=== PATIENT | male | born 1945 | race Caucasian/White ===

== ENCOUNTER → 2022-05-18 06:35 | Outpatient (CLI) | payer MEDICARE, SELFPAY ==
[2022-05-17 20:06] LABS: Basophils % 0.3 % (0.1-2.0); Eosinophils # 0.2 K/mm3 (0.0-0.4); Eosinophils % 3.3 % (0.1-12.0); Hematocrit 40.5 % (42.0-52.0); Lymphocytes % 14.2 % (10-50); Mean Corpuscular HGB Conc 32.1 g/dL (31.8-35.4); Mean Corpuscular Hemoglobin 28.5 pg (27.0-31.2); Mean Corpuscular Volume 88.8 fl (80-94); Mean Platelet Volume 12.3 fl (7.4-10.4); Monocytes # 0.4 K/mm3 (0.1-1.0); Monocytes % 5.2 % (1.7-9.3); Neutrophils # 5.6 K/mm3 (1.8-7.8); Neutrophils % 76.9 % (37.0-80.0); Platelet Count 240 K/mm3 (142-424); Red Blood Count 4.56 M/mm3 (4.60-6.20); Red Cell Distribution Width 14.6 % (11.5-17.5); White Blood Count 7.3 K/mm3 (4.8-10.8)
[2022-05-17 21:04] LABS: Alanine Aminotransferase 20 U/L (12-78); Albumin/Globulin Ratio 1.1 (1.1-1.8); Alkaline Phosphatase 95 U/L (38-126); Anion Gap 14.8 mEq/L (5-15); Aspartate Amino Transferase 29 U/L (17-59); Bilirubin,Total 0.6 mg/dl (0.2-1.3); Blood Urea Nitrogen 18 mg/dl (9-20); Calcium 9.7 mg/dl (8.4-10.2); Carbon Dioxide 20 mmol/L (22.0-30.0); Chloride 104 mmol/L (98-107); Estimated Glomerular Filt Rate 49 ml/min (>60); GFR (African American) 60 ML/MIN (>60); Globulin 3.5 g/dL (1.3-3.2); Glucose 108 mg/dl (74-100); Potassium 4.8 mmoL/L (3.5-5.1); Sodium 134 mmol/L (136-145); Total Protein,Serum 7.5 g/dl (6.3-8.2)
[2022-05-17 21:18] LABS: T4 (Thyroxine) 7.3 ug/dl (5.53-11.0)
[2022-05-17 21:32] LABS: Thyroid Stimulating Hormone 6.82 uIU/mL (0.465-4.68)
== END ==
PROVIDERS: PCP Family Medicine; Visit Provider Family Medicine
DX: I48.91 Unspecified atrial fibrillation (principal); R19.7 Diarrhea, unspecified
CPT/HCPCS: 80053; 84436; 84443; 85025

== ENCOUNTER 2023-03-16 19:33 | Emergency (ER) | payer MEDICARE, BC, OTHER, SELFPAY ==
[2023-03-16 19:26] VITALS: BMI 29.5
--- NOTE | 2023-03-16 19:26 | CT_ITS ---
PROCEDURE INFORMATION: Exam: CT Head Without Contrast Exam date and time: 03/16/2023 7:34 PM Age: 77 years old Clinical indication: Stroke-like symptoms; Speech disturbance; Additional info: Slurred speech, unilateral weakness TECHNIQUE: Imaging protocol: Computed tomography of the head without contrast. Radiation optimization: All CT scans at this facility use at least one of these dose optimization techniques: automated exposure control; mA and/or kV adjustment per patient size (includes targeted exams where dose is matched to clinical indication); or iterative reconstruction. Other technique: STROKE PROTOCOL was implemented. REPORTING DATA: Count of CT and Cardiac NM exams in prior 12 months: This patient has received 0 known CTs and 0 known cardiac nuclear medicine studies in the 12 months prior to the current study. COMPARISON: No relevant prior studies available. FINDINGS: Brain: Left frontal lobe encephalomalacia. Chronic right basal ganglia lacunar infarctions. Mild chronic brain volume loss and moderate to advanced chronic small vessel ischemic changes. Cerebral ventricles: No ventriculomegaly. Paranasal sinuses: Mild mucosal thickening in the paranasal sinuses. Postsurgical changes of the paranasal sinuses. Secretions filling most of the paranasal sinuses. Mastoid air cells: Visualized mastoid air cells are well aerated. Orbital cavities: Status post right cataract surgery. Bones/joints: Unremarkable. No acute fracture. Soft tissues: Unremarkable. IMPRESSION: 1. No acute intracranial findings. If there is high clinical concern for acute infarction, consider MRI for further evaluation. 2. Chronic paranasal sinusitis with a pattern suggestive of polyposis. ASSESSMENT: ASPECTS score ([place] Stroke Program Early CT Score) is 10.
[2023-03-16 19:33] VITALS: BP 182/113; PULSE 85; RESP 19; TEMP 36.6; O2SAT 99; BMI 28.0
--- NOTE | 2023-03-16 19:34 | PC.NURSE ---
Patient straight to CT for Stroke protocol
--- NOTE | 2023-03-16 19:35 | PC.NURSE ---
stroke alert called [id number]
[2023-03-16 19:37] VITALS: BMI 28.0
--- NOTE | 2023-03-16 19:38 | PC.NURSE ---
Patient back from CT to room. Attending at bedside
[2023-03-16 19:39] VITALS: BP 182/113; PULSE 77; RESP 19; TEMP 36.8; O2SAT 98; BMI 30.2
--- NOTE | 2023-03-16 19:44 | CT_ITS ---
PROCEDURE INFORMATION: Exam: CTA Neck With Contrast Exam date and time: 03/16/2023 7:49 PM Age: 77 years old Clinical indication: Stroke-like symptoms; Speech disturbance; Additional info: Slurred speech TECHNIQUE: Imaging protocol: Computed tomographic angiography of the neck with contrast. 3D rendering (Not supervised by radiologist): MIP and/or 3D reconstructed images were created by the technologist. Radiation optimization: All CT scans at this facility use at least one of these dose optimization techniques: automated exposure control; mA and/or kV adjustment per patient size (includes targeted exams where dose is matched to clinical indication); or iterative reconstruction. Contrast material: ISOVUE 370; Contrast volume: 100 ml; Contrast route: INTRAVENOUS (IV); REPORTING DATA: Count of CT and Cardiac NM exams in prior 12 months: This patient has received 0 known CTs and 0 known cardiac nuclear medicine studies in the 12 months prior to the current study. COMPARISON: CT HEAD/BRAIN WO CON 16/03/2023 19:34 FINDINGS: Tubes, catheters and devices: Pacemaker lead is noted. Right common carotid artery: Moderate atherosclerotic changes of the right carotid bifurcation with approximately 10% stenosis of the internal carotid artery per NASCET criteria. Right internal carotid artery: No stenosis of the extracranial segment. No dissection or occlusion. Right external carotid artery: No occlusion or stenosis of the origin. Left common carotid artery: There is a bovine aortic arch, with a common origin of the left common carotid and brachiocephalic arteries. Moderate to severe atherosclerotic disease of the left common carotid artery with a long segment of mild stenosis. In the distal aspect, there is approximately 60% stenosis of the common carotid artery. Severe atherosclerotic changes of the left carotid bifurcation with 60% stenosis of the internal carotid artery per NASCET criteria. Left internal carotid artery: No stenosis of the extracranial segment. No dissection or occlusion. Left external carotid artery: No occlusion or stenosis of the origin. Right vertebral artery: No stenosis. No dissection or occlusion. Left vertebral artery: The left vertebral artery is dominant. Soft tissues: Normal. No significant soft tissue swelling. Bones/joints: Multilevel degenerative changes of the cervical spine producing multiple levels of mild spinal canal stenosis. IMPRESSION: 1. There are approximately 60% stenoses in the distal left common carotid artery and proximal internal carotid artery. 2. THIS REPORT CONTAINS FINDINGS THAT MAY BE CRITICAL TO PATIENT CARE. The findings were verbally communicated via telephone conference with Dr. García at 8:36 PM EDT on 03/16/2023. The findings were acknowledged and understood. REFERENCES: NASCET CRITERIA. The degree of stenosis in the cervical segment of the internal carotid artery is based on NASCET criteria. Normal is no stenosis. Mild is less than 50% stenosis. Moderate is 50-69% stenosis. Severe is 70% to 99% stenosis. Total occlusion is no detectable patent lumen.
--- NOTE | 2023-03-16 19:44 | CT_ITS ---
PROCEDURE INFORMATION: Exam: CTA Head With Contrast, Arteriography Exam date and time: 03/16/2023 7:49 PM Age: 77 years old Clinical indication: Stroke-like symptoms; Speech disturbance; Additional info: Slurred speech TECHNIQUE: Imaging protocol: Computed tomographic angiography of the head with contrast. Exam focused on the arteries. 3D rendering (Not supervised by radiologist): MIP and/or 3D reconstructed images were created by the technologist. Radiation optimization: All CT scans at this facility use at least one of these dose optimization techniques: automated exposure control; mA and/or kV adjustment per patient size (includes targeted exams where dose is matched to clinical indication); or iterative reconstruction. Contrast material: ISOVUE 370; Contrast volume: 100 ml; Contrast route: INTRAVENOUS (IV); REPORTING DATA: Count of CT and Cardiac NM exams in prior 12 months: This patient has received 0 known CTs and 0 known cardiac nuclear medicine studies in the 12 months prior to the current study. COMPARISON: CT HEAD/BRAIN WO CON 16/03/2023 19:34 FINDINGS: ANTERIOR CIRCULATION: Right internal carotid artery: Moderate stenoses of cavernous and supraclinoid portions of the right internal carotid artery. Right middle cerebral artery: No occlusion or significant stenosis. No aneurysm. Right anterior cerebral artery: No occlusion or significant stenosis. No aneurysm. Left internal carotid artery: Moderate stenosis of supraclinoid portion of the left internal carotid artery. Left middle cerebral artery: The left M2 segment is small suggesting chronic stenosis. This correlates with left frontal lobe encephalomalacia. Left anterior cerebral artery: No occlusion or significant stenosis. No aneurysm. POSTERIOR CIRCULATION: Right vertebral artery: The right vertebral artery terminates at the origin of the PICA. This is most likely a developmental variant. Left vertebral artery: Left vertebral artery is dominant. Basilar artery: No occlusion or significant stenosis. No aneurysm. Right posterior cerebral artery: No occlusion or significant stenosis. No aneurysm. Left posterior cerebral artery: No occlusion or significant stenosis. No aneurysm. Brain: Left frontal lobe encephalomalacia. Mild chronic brain volume loss and chronic small vessel ischemic changes. Cerebral ventricles: No ventriculomegaly. Bones/joints: Unremarkable. No acute fracture. Soft tissues: Unremarkable. IMPRESSION: Bilateral moderate internal carotid arterial stenosis. No acute intracranial arterial occlusion.
[2023-03-16 19:51] LABS: POC Glucose,Bedside 91 (70-110)
--- NOTE | 2023-03-16 19:53 | XR_ITS ---
PROCEDURE INFORMATION: Exam: XR Chest Exam date and time: 03/16/2023 7:57 PM Age: 77 years old Clinical indication: Other: Slurred speech; Additional info: AMS TECHNIQUE: Imaging protocol: Radiologic exam of the chest. Views: 1 view. COMPARISON: CT ANGIO NECK 16/03/2023 19:49 FINDINGS: Tubes, catheters and devices: Cardiac pacemaker lead is noted. Lungs: Unremarkable. No consolidation. Pleural spaces: Unremarkable. No pleural effusion. No pneumothorax. Heart/Mediastinum: Cardiomegaly. Vasculature: Vascular calcifications. Bones/joints: Unremarkable. IMPRESSION: No acute findings.
--- NOTE | 2023-03-16 19:53 | PC.NURSE ---
Patient to CT for CT Angios
[2023-03-16 20:00] LABS: Basophils % 0.3 % (0.1-2.0); Chloride 100 mmol/L (98-107); Eosinophils # 0.8 K/mm3 (0.0-0.4); Eosinophils % 10.8 % (0.1-12.0); Hematocrit 36.2 % (42.0-52.0); Hemoglobin 11.4 g/dL (14.1-18.0); Lymphocytes % 27.3 % (10-50); Mean Corpuscular HGB Conc 31.4 g/dL (31.8-35.4); Mean Corpuscular Hemoglobin 29.1 pg (27.0-31.2); Mean Corpuscular Volume 92.8 fl (80-94); Mean Platelet Volume 10.4 fl (7.4-10.4); Monocytes # 0.4 K/mm3 (0.1-1.0); Monocytes % 5.7 % (1.7-9.3); Neutrophils # 4.1 K/mm3 (1.8-7.8); Neutrophils % 55.8 % (37.0-80.0); Platelet Count 180 K/mm3 (142-424); Potassium 3.8 mmoL/L (3.5-5.1); Red Cell Distribution Width 16.4 % (11.5-17.5); Sodium 139 mmol/L (136-145); White Blood Count 7.4 K/mm3 (4.8-10.8)
[2023-03-16 20:03] LABS: Alanine Aminotransferase 16 U/L (12-78); Albumin Level 3.9 g/dl (3.5-5.0); Albumin/Globulin Ratio 1.1 (1.1-1.8); Alkaline Phosphatase 63 U/L (38-126); Anion Gap 16.8 mEq/L (5-15); Aspartate Amino Transferase 30 U/L (17-59); Bilirubin,Total 0.6 mg/dl (0.2-1.3); Blood Urea Nitrogen 15 mg/dl (9-20); Carbon Dioxide 26 mmol/L (22.0-30.0); Creatinine Clearance Estimated 80 mL/min (50-200); Estimated Glomerular Filt Rate 65 ml/min (>60); GFR (African American) 79 ML/MIN (>60); Globulin 3.4 g/dL (1.3-3.2); Total Protein,Serum 7.3 g/dl (6.3-8.2)
[2023-03-16 20:04] LABS: Calcium 9.2 mg/dl (8.4-10.2); Glucose 100 mg/dl (74-100)
[2023-03-16 20:12] LABS: Activated Partial Thrombo Time 23.1 seconds (22.8-30.6); INR 0.95 (0.9-1.1); Prothrombin Time 10.3 seconds (10.1-12.5)
[2023-03-16 20:16] VITALS: BP 159/87; PULSE 70; O2SAT 97
--- NOTE | 2023-03-16 20:16 | [facility].EDGENADL ---
Discharge Plan Disposition Patient Disposition: Xfer Short-Term Hosp Condition: Fair Chief Complaint: Weakness Prescriptions Prescriptions: No Action prednisone 5 mg tablet 5 mg PO BID Label Comments: TAKE 1 TABLET BY MOUTH TWICE DAILY levothyroxine 50 mcg tablet 50 mcg PO DAILY Label Comments: TAKE 1 TABLET BY MOUTH IN THE MORNING esomeprazole magnesium 40 mg capsule,delayed release(DR/EC) 40 mg PO DAILY metoprolol succinate 25 mg tablet extended release 24 hr 25 mg PO BID Label Comments: TAKE 1 TABLET BY MOUTH IN THE MORNING AND 1 TABLET BEFORE BEDTIME albuterol sulfate 90 mcg/actuation HFA aerosol inhaler 2 inh INHALATION Q4-6H PRN (Reason: Breathing Problems) rosuvastatin 10 mg tablet 10 mg PO DAILY Label Comments: TAKE 1 TABLET BY MOUTH ONCE DAILY AT 9:00 AM levalbuterol tartrate 45 mcg/actuation HFA aerosol inhaler 2 inh INHALATION DAILY Xarelto 15 mg tablet 15 mg PO DAILY Label Comments: TAKE 1 TABLET BY MOUTH IN THE MORNING FOR 90 DAYS Referrals Follow up/Referrals: Anthony Hennessy MD [Primary Care Provider] - See instructions Clinical Impressions Clinical Impression: Dysarthria due to acute cerebellar cerebrovascular accident (CVA), Hypertensive emergency Discharge ED Provider: Kemal Choe General Adult HPI General Chief complaint: Weakness Stated complaint: Possible CVA Time Seen by Provider: 03/16/23 20:21 Mode of Arrival: EMS Source of Information: Patient Limitations: No Limitations Description of Symptoms (Recalled from ER Triage Doc. by RN): 77 yo male presents with a CC of right side facial droop,slight slurring of speech and right side weakness as witnessed by his family. Patient states he was bringing in groceries when he became hot on the inside, dizzy, and thought he was gonna pass out , sat down, stated it went away but called EMS due to his history of having a previous CVA last year. History of Present Illness HPI narrative: Patient presents to the emergency department with sudden onset of dysarthria around 1750. The patient has a history of CVA and is on Xarelto. The patient denies any numbness, tingling or weakness from his baseline after this happened. The patient describes nausea. Denies any vomiting. Denies any chest pain, shortness of breath. Related Data Home Medications Medication Instructions Recorded Confirmed albuterol sulfate 90 mcg/actuation 2 inh inhalation Q4-6H PRN 03/16/23 03/16/23 aerosol inhaler Breathing Problems esomeprazole magnesium 40 mg 40 mg PO DAILY Acid reflux 03/16/23 03/16/23 capsule,delayed release levalbuterol tartrate 45 2 inh inhalation DAILY Breathing 03/16/23 03/16/23 mcg/actuation aerosol inhaler problems levothyroxine 50 mcg tablet 50 mcg PO DAILY Thyroid 03/16/23 03/16/23 metoprolol succinate 25 mg 25 mg PO BID Heart rhythm 03/16/23 03/16/23 tablet,extended release 24 hr prednisone 5 mg tablet 5 mg PO BID Breathing problems 03/16/23 03/16/23 rivaroxaban 15 mg tablet (Xarelto) 15 mg PO DAILY Blood thinner 03/16/23 03/16/23 rosuvastatin 10 mg tablet 10 mg PO DAILY Cholesterol 03/16/23 03/16/23 Allergies Allergy/AdvReac Type Severity Reaction Status Date / Time INGREDIENT: NO KNOWN - NO Allergy Unknown Uncoded 08/23/22 13:16 KNOWN DRUG ALLERGY [facility] Disclaimer: The information contained in this section may have been updated after the patient was seen, as this information can be updated by other users. Social History Smoking Status: Former smoker alcohol intake: never substance use type: denies use current occupational status: retired Travel in the last 8 weeks: None household members: spouse housing: house ROS Obtained: Yes All systems reviewed & no additional complaints except as documented Neurologic Neurologic: Reports other (Dysarthria) Physical
[2023-03-16 20:17] LABS: Microscopic, Urine URINE MICROSCOPIC (MICROSCOPIC)
[2023-03-16 20:24] LABS: Appearance,Urine CLEAR (Clear); Bilirubin,Urine Negative (Negative); Blood, Urine TRACE-I (Negative); Color,Urine YELLOW (Yellow); Glucose,Urine (UA) Negative (Negative); Ketones,Urine Negative (Negative); Leukocyte Esterase,Urine 1+ (Negative); Nitrate,Urine POSITIVE (Negative); PH,Urine 5.5 (5.0-8.5); Protein,Urine Negative (Negative); Specific Gravity, Urine 1.015 (1.005-1.030); Urobilinogen,Urine 0.2 EU/dl (0.2)
[2023-03-16 20:30] VITALS: BP 159/81; PULSE 62; O2SAT 97
--- NOTE | 2023-03-16 20:33 | PC.NURSE ---
received call from kaleb
--- NOTE | 2023-03-16 20:53 | PC.NURSE ---
Spoke to [facility] with [facility] Will to verify patient information. She will call back shortly to get report
[2023-03-16 20:54] LABS: Bacteria,Urine 3+ /lpf; Squamous Epithelial Cell,Urine Occasional #/hpf (0-5)
[2023-03-16 23:00] VITALS: BP 183/106; PULSE 79; O2SAT 98
[2023-03-16 23:05] VITALS: BP 181/95; PULSE 75; O2SAT 99
[2023-03-17 00:38] VITALS: BP 151/70; PULSE 76; RESP 16; TEMP 36.7; O2SAT 98
== END 2023-03-17 00:42 | disposition short-term general hospital (02) ==
PROVIDERS: Emergency Provider Emergency Medicine; PCP Family Medicine
DX: I63.9 Cerebral infarction, unspecified (principal); I16.1 Hypertensive emergency; Z79.01 Long term (current) use of anticoagulants; Z87.891 Personal history of nicotine dependence
CPT/HCPCS: 70450; 70496; 70498; 71045; 80053; 81001; 82962; 85025; 85610; 85730; 87086; 87088; 87186; 96374; 99291; Q9967

== ENCOUNTER → 2023-07-31 11:37 | Outpatient (CLI) | payer MEDICARE, BC, SELFPAY ==
[2023-08-07 00:06] LABS: Calprotectin, Fecal 145 ug/g (0-120)
[2023-08-07 05:08] LABS: Pancreatic Elastase, Fecal 208 (>200)
== END ==
PROVIDERS: Visit Provider Nurse Practitioner
DX: K59.00 Constipation, unspecified (principal); R10.10 Upper abdominal pain, unspecified; R19.7 Diarrhea, unspecified; Z85.46 Personal history of malignant neoplasm of prostate
CPT/HCPCS: 82656; 83993; 87205